=== PATIENT | female | born 1985 | race Caucasian/White ===

== ENCOUNTER 2023-05-27 02:29 | Emergency (ER) | payer BC, SELFPAY ==
[2023-05-27 02:33] VITALS: PULSE 74; RESP 18; TEMP 36.7; O2SAT 97; BMI 23.5
[2023-05-27 02:42] VITALS: BP 122/68; PULSE 68; RESP 14; O2SAT 98
--- NOTE | 2023-05-27 02:56 | ED_ITS ---
HPI - Syncope General Chief Complaint: Syncope Stated Complaint: syncope Time Seen by Provider: 05/27/23 02:49 Source: patient Mode of arrival: walk-in Limitations: no limitations History of Present Illness HPI narrative: patient was at work. Had the sensation she needed to pass her bowels now. Went to the bathroom and recalls sitting on the commode and she was nauseated and light headed. Recalls ringing in her ears and feet feeling numb. woke up on the floor. Tried to get up and felt weak. She also has a migraine that has been ongoing for a couple of days. believes she may have struck her face when she fell because it is sore. No numbness, paresthesia or extremity weakness. No visual complaint other than photosensitivity related to her migraine MD complaint: Reports loss of consciousness Related Data Home Medications Medication Instructions Recorded Confirmed albuterol sulfate 90 mcg/actuation 2 inh inhalation BEDTIME PRN 05/27/23 05/27/23 aerosol inhaler shortness of breath or wheezing naratriptan 2.5 mg tablet 2.5 mg PO Q4H 05/27/23 05/27/23 ondansetron 4 mg disintegrating 4 mg PO Q8H PRN nausea and vomiting 05/27/23 05/27/23 tablet Allergies Allergy/AdvReac Type Severity Reaction Status Date / Time Penicillins Allergy Unknown Verified 05/27/23 02:32 Review of Systems ROS Status of ROS 10 or more systems reviewed and unremarkable except as noted in history and below [facility] Medical History (Updated 05/27/23 @ 05:44 by Dung Queen MD) Social History Smoking status: Current every day smoker Exam Constitutional Vital Signs - 24 hr 05/27/23 02:33 05/27/23 02:42 05/27/23 03:00 Temperature 98.1 F Pulse Rate 68 66 Pulse Rate [Monitor] 74 Respiratory Rate 18 14 13 Blood Pressure 122/68 H 118/77 Pulse Oximetry 97 98 96 Oxygen Delivery Method Room Air 05/27/23 04:00 05/27/23 04:30 05/27/23 05:01 Temperature Pulse Rate 76 67 71 Pulse Rate [Monitor] Respiratory Rate 16 12 12 Blood Pressure 126/64 H 121/82 H 133/83 H Pulse Oximetry 97 99 Oxygen Delivery Method Common normals: no apparent distress, average body habitus, oriented x3, healthy appearing and alert HENMT Common normals: normocephalic and head/scalp atraumatic Eye Common normals: EOMs intact bilaterally and conjunctivae normal Neck & C-Spine Common normals: full ROM Respiratory Common normals: normal respiratory effort, no retractions, no use of accessory muscles and clear to auscultation bilaterally Cardio Common normals: regular rate, regular rhythm, S1 normal heart sound and S2 normal heart sound GI Common normals: Normal to inspection, nondistended, normoactive bowel sounds present, soft to palpation and non-tender Extremity Common normals: normal to inspection and full ROM Neuro Common normals: oriented x3, CN's II-XII intact bilaterally, moves all extremities, no focal motor deficits and no sensory deficits noted Psych Appearance: grossly normal Course Vital Signs Vital signs: Vital Signs Temperature 98.1 F 05/27/23 02:33 Pulse Rate 74 05/27/23 02:33 Respiratory Rate 18 05/27/23 02:33 Pulse Oximetry 97 05/27/23 02:33 Oxygen Delivery Method Room Air 05/27/23 02:33 Temperature 98.1 F 05/27/23 02:33 Pulse Rate 71 05/27/23 05:01 Respiratory Rate 12 05/27/23 05:01 Blood Pressure 133/83 H 05/27/23 05:01 Pulse Oximetry 99 05/27/23 05:01 Oxygen Delivery Method Room Air 05/27/23 02:33 MDM - Syncope MDM Narrative Medical decision making narrative: patient presents from work after syncope episode. had the immediate urge to have a BM. Did have BM but then became nauseated, light headed and passed out striking her face. No obvious injury to her face. she also had been experiencing a migraine headache for a couple of days. Workup in the department neg including non detectable troponin and neg d-dimer. EKG WNL with isolated PVC. Patient treated for her migraine that also resolved and diagnostic studies including CT brain neg. Patient discharged home and informed of working diagno sis of vasovagal syncope Lab Data Labs: Lab Results 05/27/23 05/27/23 Range/Units 02:45 05:05 WBC 10.5 (4.0-11.0) 10^3/uL RBC 4.76 (4.20-5.40) 10^6/uL Hgb 14.0 (12.0-16.0) g/dL Hct 41.7 (36.0-48.0) % MCV 87.6 (81.0-99.0) fL MCH 29.4 (26.7-34.0) pg MCHC 33.6 (29.9-35.2) g/dL RDW 12.1 (11.0-15.0) % Plt Count 280 (150-450) 10^3/uL MPV 11.2 (9.5-13.5) fL Neut % (Auto) 51.8 (43.0-75.0) % Lymph % (Auto) 35.1 (20.5-60.0) % Mayes % (Auto) 9.1 (1.7-12.0) % Eos % (Auto) 3.2 (0.9-7.0) % Baso % (Auto) 0.6 (0.2-2.0) % Neut # (Auto) 5.4 (1.4-6.5) 10^3/uL Lymph # (Auto) 3.7 (1.2-3.8) 10^3/uL Mayes # (Auto) 1.0 H (0.3-0.8) 10^3/uL Eos # (Auto) 0.3 (0.0-0.7) 10^3/uL Baso # (Auto) 0.1 (0.0-0.1) 10^3/uL Abs Immat Gran (auto) 0.02 (0.00-0.03) 10^3/uL Imm/Tot Granulo (auto) 0.2 (0.0-0.5) % D-Dimer <0.19 (<=0.59) mg/L FEU Sodium 139 (136-145) mmol/L Potassium 3.9 (3.5-5.1) mmol/L Chloride 105 (98-107) mmol/L Carbon Dioxide 27.7 (21.0-32.0) mmol/L Anion Gap 10.2 BUN 21.0 H (7.0-18.0) mg/dL Creatinine 1.02 (0.55-1.02) mg/dL Est GFR ( Amer) >60 (>=60) Est GFR (Non-Af Amer) >60 (>=60) BUN/Creatinine Ratio 20.6 Glucose 105 (74-106) mg/dL Calcium 8.7 (8.5-10.1) mg/dL Troponin I High Sens <4.0 L <4.0 L (4.0-51.3) pg/mL Discharge Plan Discharge Chief Complaint: Syncope Clinical Impression: Migraine, Vasovagal syncope Patient Disposition: Home, Self-Care Prescriptions / Home Meds: No Action albuterol sulfate 90 mcg/actuation HFA aerosol inhaler 2 inh INHALATION BEDTIME PRN (Reason: shortness of breath or wheezing) naratriptan 2.5 mg tablet 2.5 mg PO Q4H ondansetron 4 mg tablet,disintegrating 4 mg PO Q8H PRN (Reason: nausea and vomiting) Instructions: Migraine Headache (ED), Syncope (ED) Additional Instructions: drink plenty of fluids and follow up with your family doctor next week Stand Alone Forms: Portal Instructions Referrals: Physician,Non-Staff, MD [Primary Care Provider] - 1 week
[2023-05-27 03:00] VITALS: BP 118/77; PULSE 66; RESP 13; O2SAT 96
--- NOTE | 2023-05-27 03:00 | XR_ITS ---
The [address] [address] Patient Name: JLUIS CASE MRN: [facility]:[id number] date: 1985 Sex: F Assigned Patient Location: ER Current Patient Location: ER Accession/Order Number: [id number] Exam Date: 05/27/2023 03:10 Report Date: 05/27/2023 04:47 At the request of: SHAMA JIMÉNEZ Procedure: XR cervical spine 2-3V EXAM: XR cervical spine 2-3V HISTORY: head injury COMPARISON: None. TECHNIQUE: 3 views of the cervical spine FINDINGS: Straightening of the normal cervical lordotic curvature. Vertebral body heights are preserved. Cervical spine alignment is maintained without evidence for spondylolisthesis. The odontoid process is intact. No acute fractures are visualized. Intervertebral disc spaces are grossly preserved. Intimal degenerative changes of the cervical spine visualized. Imaged lung abraham are clear. IMPRESSION: No acute fracture or traumatic malalignment. Electronically authenticated by: INGRID CALIX Date: 05/27/2023 04:47
--- NOTE | 2023-05-27 03:00 | ECG_ITS ---
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
--- NOTE | 2023-05-27 03:00 | CT_ITS ---
The [address] [address] Patient Name: JLUIS CASE MRN: [id number] date: 1985 Sex: F Assigned Patient Location: ER Current Patient Location: ER Accession/Order Number: [id number] Exam Date: 05/27/2023 03:10 Report Date: 05/27/2023 04:53 At the request of: SHAMA JIMÉNEZ Procedure: CT facial bones wo con EXAM: CT head/brain wo con, CT facial bones wo con CLINICAL INDICATION: headache COMPARISON: None TECHNIQUE: Axial CT images of the brain and facial bones were obtained without contrast. Dose reduction techniques were achieved by using automated exposure control and/or adjustment of mA and/or kV according to patient size and/or use of iterative reconstruction technique. FINDINGS: Brain parenchyma: No mass effect or midline shift is seen. Swift-white differentiation is maintained. No findings suspicious for intracranial hemorrhage. No findings suggesting acute stroke. Ventricles and extra-axial spaces: Ventricles are concordant with sulci. No findings suggesting hydrocephalus. Visualized paranasal sinuses: No findings suggesting acute sinusitis. Mastoid air cells: Clear. Included portions of the orbits:Included portions of the orbits with no evidence of fracture or other acute pathology. Bones: No fracture is seen. CT maxillofacial: There are no acute fractures of the maxillofacial bones, mandible, or imaged portions of the skull base and temporal bones. There is no mandibular subluxation or dislocation. There is no soft tissue swelling. The paranasal sinuses, mastoid air cells, and middle ear cavities are clear. Impression: 1. No acute intracranial process. 2. No acute maxillofacial fracture. Electronically authenticated by: INGRID CALIX Date: 05/27/2023 04:53
--- NOTE | 2023-05-27 03:00 | XR_ITS ---
The [address] [address] Patient Name: JLUIS CASE MRN: [id number] date: 1985 Sex: F Assigned Patient Location: ER Current Patient Location: ER Accession/Order Number: [id number] Exam Date: 05/27/2023 03:10 Report Date: 05/27/2023 04:49 At the request of: SHAMA JIMÉNEZ Procedure: XR chest 1V EXAM: XR chest 1V HISTORY: syncope COMPARISON: None. TECHNIQUE: AP FINDINGS: Cardiac mediastinal silhouette is within normal limits. Bilateral lung abraham show no evidence for acute consolidation, infiltrate, pneumothorax or pleural effusions. The diaphragmatic and osseous structures are intact without evidence for an acute osseous abnormality. IMPRESSION: No acute cardiopulmonary process. Electronically authenticated by: INGRID CALIX Date: 05/27/2023 04:49
--- NOTE | 2023-05-27 03:00 | CT_ITS ---
The [address] [address] Patient Name: JLUIS CASE MRN: [id number] date: 1985 Sex: F Assigned Patient Location: ER Current Patient Location: ER Accession/Order Number: [id number] Exam Date: 05/27/2023 03:10 Report Date: 05/27/2023 04:53 At the request of: SHAMA JIMÉNEZ Procedure: CT head/brain wo con EXAM: CT head/brain wo con, CT facial bones wo con CLINICAL INDICATION: headache COMPARISON: None TECHNIQUE: Axial CT images of the brain and facial bones were obtained without contrast. Dose reduction techniques were achieved by using automated exposure control and/or adjustment of mA and/or kV according to patient size and/or use of iterative reconstruction technique. FINDINGS: Brain parenchyma: No mass effect or midline shift is seen. Swift-white differentiation is maintained. No findings suspicious for intracranial hemorrhage. No findings suggesting acute stroke. Ventricles and extra-axial spaces: Ventricles are concordant with sulci. No findings suggesting hydrocephalus. Visualized paranasal sinuses: No findings suggesting acute sinusitis. Mastoid air cells: Clear. Included portions of the orbits:Included portions of the orbits with no evidence of fracture or other acute pathology. Bones: No fracture is seen. CT maxillofacial: There are no acute fractures of the maxillofacial bones, mandible, or imaged portions of the skull base and temporal bones. There is no mandibular subluxation or dislocation. There is no soft tissue swelling. The paranasal sinuses, mastoid air cells, and middle ear cavities are clear. Impression: 1. No acute intracranial process. 2. No acute maxillofacial fracture. Electronically authenticated by: INGRID CALIX Date: 05/27/2023 04:53
[2023-05-27 03:17] LABS: Basophils Absolute Auto 0.1 10^3/uL (0.0-0.1); Basophils Percent Auto 0.6 % (0.2-2.0); Eosinophils Absolute Auto 0.3 10^3/uL (0.0-0.7); Eosinophils Percent Auto 3.2 % (0.9-7.0); Hematocrit 41.7 % (36.0-48.0); Immature Granulocytes Abs Auto 0.02 10^3/uL (0.00-0.03); Immature Granulocytes Pct Auto 0.2 % (0.0-0.5); Lymphocytes Absolute Auto 3.7 10^3/uL (1.2-3.8); Lymphocytes Percent Auto 35.1 % (20.5-60.0); Mean Corpuscular HGB Conc 33.6 g/dL (29.9-35.2); Mean Corpuscular Hemoglobin 29.4 pg (26.7-34.0); Mean Corpuscular Volume 87.6 fL (81.0-99.0); Mean Platelet Volume 11.2 fL (9.5-13.5); Monocytes Percent Auto 9.1 % (1.7-12.0); Neutrophils Absolute Auto 5.4 10^3/uL (1.4-6.5); Neutrophils Percent Auto 51.8 % (43.0-75.0); Platelet Count 280 10^3/uL (150-450); Red Blood Count 4.76 10^6/uL (4.20-5.40); Red Cell Distribution Width 12.1 % (11.0-15.0); White Blood Count 10.5 10^3/uL (4.0-11.0)
[2023-05-27 03:24] LABS: Anion Gap 10.2; BUN Creatinine Ratio 20.6; Calcium 8.7 mg/dL (8.5-10.1); Carbon Dioxide 27.7 mmol/L (21.0-32.0); Chloride 105 mmol/L (98-107); Estimated GFR (African America >60 (>=60); Estimated GFR (Non-African Ame >60 (>=60); Glucose 105 mg/dL (74-106); Potassium 3.9 mmol/L (3.5-5.1); Sodium 139 mmol/L (136-145); Troponin I High Sensitivity <4.0 pg/mL (4.0-51.3)
[2023-05-27 03:26] LABS: D Dimer <0.19 mg/L FEU (<=0.59)
[2023-05-27] MEDS: 0.9 % SODIUM CHLORIDE 1,000 ML 999 ML IV (03:42)
[2023-05-27] MEDS: METHYLPREDNISOLONE SOD SUCC PF 125 MG/2 ML VIAL IVP (03:42)
[2023-05-27] MEDS: METOCLOPRAMIDE HCL 10 MG/2 ML VIAL IVP (03:42)
[2023-05-27 04:00] VITALS: BP 126/64; PULSE 76; RESP 16
[2023-05-27 04:30] VITALS: BP 121/82; PULSE 67; RESP 12; O2SAT 97
[2023-05-27 05:01] VITALS: BP 133/83; PULSE 71; RESP 12; O2SAT 99
[2023-05-27 05:37] LABS: Troponin I High Sensitivity <4.0 pg/mL (4.0-51.3)
== END 2023-05-27 05:52 | disposition home or self-care (01) ==
PROVIDERS: Emergency Provider Internal Medicine
DX: G43.909 Migraine, unspecified, not intractable, without status migrainosus (principal); R55 Syncope and collapse; F17.210 Nicotine dependence, cigarettes, uncomplicated
CPT/HCPCS: 36415; 70450; 70486; 71045; 72040; 80048; 84484; 85025; 85378; 93005; 96374; 96375; 99285; J2930